=== PATIENT | female | born 1965 | race Caucasian/White ===

== ENCOUNTER → 2016-11-15 | Day surgery (SDC) | payer OTHER ==
[~2016-11-15] VITALS: Ht 167.6 cm; Wt 53.0 kg
[~2016-11-15] MED LIST: ACETAMINOPHEN/HYDROcodone 325 MG/7.5 MG TAB PO PRN; BUPIVACAINE HCL PF 0.25% 30 ML VIAL ONE; CHLORHEXIDINE GLUCONATE 2 % 1 PACK (2 CLOTHS) TOPICAL PRN; CHLORHEXIDINE GLUCONATE 4% SOLN 120 ML BTL TOPICAL SCH; CYCL1TAB29 PO; DO NOT ADM ANY ANTICOAGULANT DRUGS PRN; EC-N500T PO; FAMOTIDINE 20 MG/2 ML VIAL ONE; FERR200T PO; FERR65TA PO; HYDR-3288 PO; INSULIN HUMAN REGULAR 1,000 UNITS/10 ML VIAL SQ PRN; LACTATED RINGER'S 1000 ML IV PRN; LEVO.1 PO; METOPROLOL TARTRATE 25 MG TAB PO PRN; MIDAZOLAM HCL 2 MG/2 ML VIAL ONE; MORPHINE SULFATE 4 MG/ML INJ IV PUSH PRN; NORC5TAB PO; ONDANSETRON HCL 4 MG/2 ML VIAL IV PRN; ONDANSETRON HCL 4 MG/2 ML VIAL IV PUSH ONE; PERC5TAB12 PO; PROPOFOL 200 MG/20 ML AMP IV ONE; SODIUM CHLORID 0.9% 500 ML IV PRN; SODIUM CHLORIDE 0.9% FLUSH 10 ML FLUSH IV FLUSH PRN; SODIUM CHLORIDE 0.9% FLUSH 10 ML FLUSH IV FLUSH SCH; VANCOMYCIN 1000 MG/NS 250 ML (for <70 kg) IV SCH; ceFAZolin 2 GM PREMIX 50 ML IV SCH; ceFAZolin INJ 1,000 MG VIAL ONE; fentaNYL CITRATE 250 MCG/5 ML AMP ONE
[2016-11-15 05:59] VITALS: BP 125/82; PULSE 63; RESP 16; TEMP 98.3; O2SAT 97
--- NOTE | 2016-11-15 09:20 | PD.OP ---
cc: Ricardo Mcdermott MD Operative Report Date of Surgery: Nov 15, 2016 Preoperative Diagnosis: Severe left carpal tunnel syndrome Postoperative Diagnosis: Procedure: Open left carpal tunnel release Anesthesia: Gen. Surgeon: Ricardo Mcdermott Software Security Architect(s): JACQUELYN Esparza PA-C The surgical procedure was assisted by my physician geriatric assistant. My P.A. presence was necessary throughout this case for the manipulation and positioning of the surgical extremity. My P.A. was assisting me throughout the duration of this procedure. The skill set of a physician geriatric assistant was medically necessary to complete this procedure. During the surgical case the certified surgical tech/first assistant was working at the back table and the physician geriatric assistant was directly assisting me. Operation and Findings: Deb was seen and evaluated preoperatively. She had clinical evidence as well as nerve conduction studies showing severe compression of bilateral carpal tunnel on the median nerve. Informed consent was obtained and operative site was marked. She is brought to operating room. She was given IV sedation and general anesthesia. Left arm was prepped with alcohol followed by Hibiclens and draped usual sterile fashion. Timeout procedure was performed. IV antibiotics were administered prior to incision. Procedure began with a 1 inch incision over the palmar aspect of the carpal tunnel. Tourniquet was inflated prior to incision. The transverse carpal ligament was identified. The transverse carpal ligament was carefully incised sharply. The ligament was thickened and abnormal. Care was taken to avoid injury to the median nerve. Care was also taken to avoid injury to any branches of the median nerve. The transverse carpal ligament was completely transected. At this point there was no further compression of the carpal tunnel. The wound was thoroughly irrigated. Tourniquet was released. Tourniquet time was 9 minutes. Hemostasis was now obtained using bipolar electrocautery. Skin was closed with 3-0 nylon in vertical mattress fashion. Sterile dressings were applied. Patient was awakened and transferred to recovery room in stable condition. Ricardo Mcdermott MD Nov 15, 2016 09:20
[2016-11-15 10:40] VITALS: BP 133/86; PULSE 61; RESP 16; TEMP 98; O2SAT 97
--- NOTE | 2016-11-15 22:20 | EKG ---
Date Performed: 11/15/2016 Time Performed: 06:12:04 PTAGE: 51 years EKG: Sinus rhythm Normal ECG PREVIOUS TRACING : 03/27/2012 13.26 DOCTOR: Wesley Villegas Interpretating Date/Time 11/15/2016 22:18:26
== END | disposition home or self-care (01) ==
LOC: HSDC 05:05
PROVIDERS: ATTEND Orthopaedic Surgery Orthopaedic Trauma
DX: G56.02 Carpal tunnel syndrome, left upper limb (principal); Z01.810 Encounter for preprocedural cardiovascular examination
CPT/HCPCS: 01810; 64721; 93005; J0690; J2250; J2405; J3010; J3370; J7050; J7120

== ENCOUNTER → 2016-12-07 | Day surgery (SDC) | payer OTHER ==
[~2016-12-07] VITALS: Ht 167.6 cm; Wt 54.7 kg
[~2016-12-07] MED LIST changes: +ACETAMINOPHEN 1000 MG/100 ML VIAL IV ONE; +ACETAMINOPHEN/HYDROcodone 325 MG/5 MG TAB PO PRN; -ACETAMINOPHEN/HYDROcodone 325 MG/7.5 MG TAB PO PRN; +DEXAMETHASONE SOD PHOS 4 MG/ML VIAL ONE; -ONDANSETRON HCL 4 MG/2 ML VIAL IV PRN; -ceFAZolin INJ 1,000 MG VIAL ONE; -fentaNYL CITRATE 250 MCG/5 ML AMP ONE
[2016-12-07 05:58] VITALS: BP 109/69; PULSE 70; RESP 20; TEMP 98.3; O2SAT 98
--- NOTE | 2016-12-07 07:28 | PD.OP ---
cc: Ricardo Mcdermott MD Operative Report Date of Surgery: December 07, 2016 Preoperative Diagnosis: Right carpal tunnel syndrome Postoperative Diagnosis: Procedure: Right open carpal tunnel release Anesthesia: Gen. Surgeon: Ricardo Mcdermott Missile Control Pilot(s): JACQUELYN Sotelo PA-C Operation and Findings: Deb was seen and evaluated preoperatively. She had clinical evidence as well as nerve conduction studies showing severe compression of bilateral carpal tunnel on the median nerve. Informed consent was obtained and operative site was marked. She is brought to operating room. She was given IV sedation and general anesthesia. Right arm was prepped with alcohol followed by Hibiclens and draped usual sterile fashion. Timeout procedure was performed. IV antibiotics were administered prior to incision. Procedure began with a 1 inch incision over the palmar aspect of the carpal tunnel. The transverse carpal ligament was identified. The transverse carpal ligament was carefully incised sharply. The ligament was thickened and abnormal. Care was taken to avoid injury to the median nerve. Care was also taken to avoid injury to any branches of the median nerve. The transverse carpal ligament was completely transected. At this point there was no further compression of the carpal tunnel. The wound was thoroughly irrigated. Hemostasis was now obtained using bipolar electrocautery. Skin was closed with 3-0 nylon in vertical mattress fashion. Sterile dressings were applied. Patient was awakened and transferred to recovery room in stable condition Ricardo Mcdermott MD December 07, 2016 07:28
[2016-12-07 08:41] VITALS: BP 115/79; PULSE 64; RESP 20; TEMP 98; O2SAT 96
== END | disposition home or self-care (01) ==
LOC: HSDC 05:11
PROVIDERS: ATTEND Orthopaedic Surgery Orthopaedic Trauma
DX: G56.01 Carpal tunnel syndrome, right upper limb (principal)
CPT/HCPCS: 01810; 64721; J0131; J0690; J1100; J2250; J2405; J3010; J3370; J7050; J7120

== ENCOUNTER 2017-01-29 01:35 | Emergency (ER) | payer OTHER ==
[~2017-01-29] VITALS: Ht 162.6 cm; Wt 58.0 kg
[~2017-01-29 01:35] MED LIST changes: -ACETAMINOPHEN 1000 MG/100 ML VIAL IV ONE; -ACETAMINOPHEN/HYDROcodone 325 MG/5 MG TAB PO PRN; -BUPIVACAINE HCL PF 0.25% 30 ML VIAL ONE; -CHLORHEXIDINE GLUCONATE 2 % 1 PACK (2 CLOTHS) TOPICAL PRN; -CHLORHEXIDINE GLUCONATE 4% SOLN 120 ML BTL TOPICAL SCH; -CYCL1TAB29 PO; -DEXAMETHASONE SOD PHOS 4 MG/ML VIAL ONE; -DO NOT ADM ANY ANTICOAGULANT DRUGS PRN; -EC-N500T PO; -FAMOTIDINE 20 MG/2 ML VIAL ONE; -FERR200T PO; -INSULIN HUMAN REGULAR 1,000 UNITS/10 ML VIAL SQ PRN; -LACTATED RINGER'S 1000 ML IV PRN; -METOPROLOL TARTRATE 25 MG TAB PO PRN; -MIDAZOLAM HCL 2 MG/2 ML VIAL ONE; -MORPHINE SULFATE 4 MG/ML INJ IV PUSH PRN; -ONDANSETRON HCL 4 MG/2 ML VIAL IV PUSH ONE; -PERC5TAB12 PO; -PROPOFOL 200 MG/20 ML AMP IV ONE; -SODIUM CHLORID 0.9% 500 ML IV PRN; -SODIUM CHLORIDE 0.9% FLUSH 10 ML FLUSH IV FLUSH PRN; -SODIUM CHLORIDE 0.9% FLUSH 10 ML FLUSH IV FLUSH SCH; -VANCOMYCIN 1000 MG/NS 250 ML (for <70 kg) IV SCH; -ceFAZolin 2 GM PREMIX 50 ML IV SCH
[2017-01-29 01:39] VITALS: BP 149/79; PULSE 69; RESP 16; TEMP 98.5; O2SAT 99
[2017-01-29] MEDS ORDERED: FERR200T PO (02:55)
[2017-01-29] MEDS ORDERED: LEVO.1 PO (02:55)
[2017-01-29] MEDS ORDERED: PERC5TAB12 PO (02:55)
--- NOTE | 2017-01-29 04:30 | PD ---
HPI Chief Complaint: Fall Time Seen by Provider: 02:56 Travel History International Travel<30 days: No Contact w/Intl Traveler<30days: No Traveled to known affect area: No History of Present Illness HPI The patient is a 51 year old female who presents to the [facility] emergency department with a history of right-sided lateral rib pain that began last Sunday,approximately 5 days ago. She was at work on short two-step ladder while holding boxes when her wrists gave out and she twisted and hit the right side of her chest on the steel shelving. She had just returned from work after a carpal tunnel release bilaterally and that is why she believes her wrists gave out. She reports that the pain waxes and wanes in severity. She reports that it is worse with movement, coughing, or taking a deep breath. She reports that it makes her feel short of breath. On review of systems, the patient denies any recent fevers, cough, congestion, neck pain, abdominal pain, vomiting, diarrhea , urinary symptoms, or neurologic symptoms. She reports that she has nausea at times related to the pain. The patient reports that the pain awoke her from sound sleep prior to arrival, but she came to the emergency department. She reports that this is her initial evaluation after the injury. [facility] Past Medical History Narrative Medical The patient's past medical history is significant for pneumonia a year ago, hypothyroid disorder. Cancer: No Cardiovascular Problems: No Diabetes: No Diminished Hearing: No Endocrine: Yes Genitourinary: No Hepatitis: No Hiatal Hernia: No Hypertension: No Immune Disorder: No Musculoskeletal: Yes (CARPAL TUNNEL RIGHT WRIST) Neurologic: No Psychiatric: No Reproductive: No Respiratory: No Thyroid Disease: Yes ?: Not Past Surgical History Narrative Surgical Patient's past surgical history is significant for carpal tunnel release b/l, finger sx, . Abdominal Surgery: No AICD: No Cardiac Surgery: No Section: Yes Ear Surgery: No Endocrine Surgery: No Eye Surgery: No Genitourinary Surgery: No Gynecologic Surgery: Yes (C SECTION) Joint Replacement: No Oral Surgery: No Pacemaker: No Thoracic Surgery: No Other Surgery: Yes (left first finger tendon repair) Social History Alcohol Use: Yes (6+ beers on weekends/time off) Tobacco Use: Yes (1 CIGS DAILY) Substance Use: No Allergies-Medications (Allergen,Severity, Reaction): Coded Allergies: Iodine (Verified Allergy, Severe, HIVES, 01/29/17) Sulfa (Verified Allergy, Severe, hives, lower extremity swelling, 01/29/17) Reported Meds & Prescriptions Reported Meds & Active Scripts Active EC-Naprosyn (Naproxen) 500 Mg Tabdr 500 Mg PO BID PRN Flexeril (Cyclobenzaprine HCl) 10 Mg Tab 10 Mg PO TID PRN Reported Synthroid (Levothyroxine Sodium) 100 Mcg Tab 100 Mcg PO DAILY Percocet (Oxycodone-Acetaminophen) 5-325 mg Tab 1 Tab PO Q6H PRN Feosol (Ferrous Sulfate) 200 Mg Tab 65 Mg PO DAILY Review of Systems Except as stated in HPI: all other systems reviewed are Neg General / Constitutional: No: Fever Eyes: No: Visual changes HENT: No: Headaches, Rhinorrhea, Congestion Cardiovascular: Positive: Chest Pain or Discomfort, Dyspnea on exertion Respiratory: No: Shortness of Breath Gastrointestinal: Positive: Nausea, No: Vomiting, Diarrhea, Abdominal Pain Genitourinary: No: Dysuria Musculoskeletal: No: Pain Skin: No Rash Neurologic: No: Weakness Psychiatric: No: Depression Endocrine: No: Polydipsia Hematologic/Lymphatic: No: Easy Bruising Physical Exam Narrative General: The patient is a well-developed well-nourished female, uncomfortable appearing on examination, sitting up in a chair on my arrival to the room. Head and Neck exam: Head is normocephalic atraumatic. Eyes: EOMI, pupils are equal round and reactive to light. Nose: Midline septum with pink mucous membranes Mouth: Dentition unremarkable. Moist mucus membranes. Posterior oropharynx is not erythematous. No tonsillar hypertrophy. Uvula midline. Airway patent. Neck: No palpable lymphadenopathy. No nuchal rigidity. No thyromegaly. Cardiovascular: Regular rate and rhythm without murmurs, gallops, or rubs. No pulse deficit to the extremities. Lungs: Clear to auscultation bilaterally. No wheezes, rhonchi, or rales. The patient on examination of the right side of her chest wall, lateral aspect has tenderness on palpation without any crepitus or step-off. No erythema or ecchymosis. No flail segment. Abdomen: Soft, without tenderness to palpation in all 4 quadrants of the abdomen. No guarding, rebound, or rigidity. Normal bowel sounds are audible. No tenderness on palpation of McBurney's point. Negative Francisco's sign. Extremities: No clubbing, cyanosis, or edema. 2+ pulses in all 4 extremities. No calf tenderness on palpation. Back: No spinous process tenderness to palpation. No costovertebral angle tenderness to palpation. Neurologic Exam: Grossly nonfocal. Skin Exam: No rash noted. Intact skin that is warm and dry. Data Data Last Documented VS Vital Signs Date Time Temp Pulse Resp B/P Pulse Ox O2 Delivery O2 Flow Rate FiO2 01/29/17 07:16 62 18 137/83 97 01/29/17 07:00 Room Air 01/29/17 01:39 98.5 Orders Ribs, Uni (W/Exp Cxr-Min 3vw) (01/29/17 04:33) Ketorolac Inj (Toradol Inj) (01/29/17 04:45) Orphenadrine Inj (Norflex Inj) (01/29/17 04:45) MDM Medical Decision Making Medical Screen Exam Complete: Yes Emergency Medical Condition: Yes Medical Record Reviewed: Yes Interpretation(s) Last Impressions Ribs X-Ray 01/29/17 0433 Signed Impressions: Service Date/Time: Sunday, January 29, 2017 04:44 - CONCLUSION: Right fourth and fifth lateral rib fractures. Bert Thapa MD Differential Diagnosis Rib fracture, versus pneumothorax, versus hemothorax, versus chest wall contusion, versus musculoskeletal strain Narrative Course During the course of the patients emergency department visit, the patients history, examination, and differential diagnosis were reviewed with the patient. The patient had rib series ordered on the right side. The patient was initially provided Toradol for pain, Norflex for muscle spasm Radiology studies were reviewed and remarkable for an x-ray that reveals a right fourth and fifth rib fracture. No evidence of pneumothorax or infiltrate. The patient will be discharged home with a prescription for Flexeril and Naprosyn. The patient reports that she does have Percocet at home related to her recent carpal tunnel surgery. The patient is resting comfortably and feels better, is alert and in no distress. The patients results and examination findings were discussed with the patient. The repeat examination is unremarkable and benign. The history, exam, diagnostic testing, and current condition do not suggest any significant pathology to warrant further testing, continued ED treatment, admission, or surgical evaluation at this point. The vital signs have been stable. The patient does not have uncontrollable pain, intractable vomiting, or other significant symptoms. The patient's condition is stable and appropriate for discharge. The patient will pursue further outpatient evaluation with a primary care physician or other designated or consulting physician as indicated in the discharge instructions. The patient expressed understanding and was agreeable with this plan. Diagnosis Primary Impression: Rib fractures Qualified Code: S22.41XA - Closed fracture of multiple ribs of right side, initial encounter Referrals: Primary Care Physician 3 days Patient Instructions: General Instructions, Rib Fracture (ED) Med/Other Pt SpecificInfo: Prescription(s) given Scripts Naproxen DR (EC-Naprosyn)500 Mg [id number] Mg PO BID PRN (PAIN GREATER THAN 5) # 10 TAB Ref 0 Prov:Sapphire Velasquez MD 01/29/17 Cyclobenzaprine (Flexeril)10 Mg Tab10 Mg PO TID PRN (SPASM) #15 TAB Ref 0 Prov:Sapphire Velasquez MD 01/29/17 Disposition: 01 DISCHARGE HOME Condition: Stable Sapphire Velasquez MD Jan 29, 2017 04:30 Sapphire Velasquez MD Jan 29, 2017 04:30
[2017-01-29] MEDS ORDERED: ORPHENADRINE INJ 60 MG/2 ML AMP IM ONE (04:45)
[2017-01-29] MEDS ORDERED: KETOROLAC TROMETHAMINE 60 MG/2 ML (IM) VIAL IM ONE (04:45)
[2017-01-29 05:19] VITALS: BP 140/74; PULSE 71; RESP 18; O2SAT 100
[2017-01-29] MEDS ORDERED: EC-N500T PO (05:23)
[2017-01-29] MEDS ORDERED: CYCL1TAB29 PO (05:23)
--- NOTE | 2017-01-29 05:34 | RADRPT ---
EXAM DATE/TIME: 01/29/2017 04:44 [place] COMPARISON: No previous studies available for comparison. INDICATIONS : Right anterior rib pain near 3rd and 4th rib. MEDICAL HISTORY : None. SURGICAL HISTORY : None. ENCOUNTER: Initial ACUITY: 1 day PAIN SCORE: 8/10 LOCATION: Right ribs FINDINGS: Multiple views of the right ribs were performed. There are fractures of the right fourth and fifth ri bs. Expiratory view of the chest is negative for pneumothorax. The mediastinal structures are midli ne. CONCLUSION: Right fourth and fifth lateral rib fractures. Bert Thapa MD on January 29, 2017 at 5:31 Board Certified Radiologist. This report was verified electronically.
[2017-01-29 07:16] VITALS: BP 137/83
== END 2017-01-29 07:17 | disposition home or self-care (01) ==
LOC: NEPC 01:35
DX: S22.41XA Multiple fractures of ribs, right side, initial encounter for closed fracture (principal); W22.8XXA Striking against or struck by other objects, initial encounter; X50.1XXA Overexertion from prolonged static or awkward postures, initial encounter; Y93.89 Activity, other specified; Y92.69 Other specified industrial and construction area as the place of occurrence of the external cause; Y99.0 Civilian activity done for income or pay
CPT/HCPCS: 71101; 96372; 99284; J1885; J2360